=== PATIENT | female | born 1980 | race Caucasian/White ===

== ENCOUNTER 2018-08-09 12:52 | Emergency (ER) | payer OTHER ==
[2018-08-09] MEDS ORDERED: IBUPROFEN 400 MG TABLET (FP) PO ONE ×2 (13:05→13:10)
[2018-08-09 13:10] VITALS: BP 99/62; PULSE 88; BMI 25.4
--- NOTE | 2018-08-09 13:36 | PDOC ---
History of Present Illness - General Chief Complaint: Cold Symptoms Stated Complaint: HEADACHE/CONGESTION Time Seen by Provider: 08/09/18 13:19 History Source: Patient Exam Limitations: No Limitations Past History - Past Medical History Allergies/Adverse Reactions: Allergies Allergy/AdvReac Type Severity Reaction Status Date / Time No Known Allergies Allergy Verified 08/09/18 13:02 Home Medications: Ambulatory Orders NK [No Known Home Medication] 08/09/18 Anemia: No Asthma: No Cardiac Disorders: No COPD: No CHF: No Diabetes: No GI Disorders: Yes (hiatal hernia) Psychiatric Problems: Yes (anxiety) - Immunization History Immunization Up to Date: Yes - Suicide/Smoking/Psychosocial Hx Smoking History: Never smoked Have you smoked in the past 12 months: No Hx Alcohol Use: No Substance Use Type: None *Physical Exam - Vital Signs Last Vital Signs Temp Pulse Resp BP Pulse Ox 102.6 F H 88 18 99/62 100 08/09/18 13:03 08/09/18 13:03 08/09/18 13:03 08/09/18 13:03 08/09/18 13:03 - Physical Exam General Appearance: No: Apparent Distress HEENT: positive: Normal ENT Inspection, TMs Normal, Pharynx Normal Respiratory/Chest: positive: Lungs Clear, Normal Breath Sounds. negative: Respiratory Distress Cardiovascular: positive: Regular Rhythm, Regular Rate, S1, S2. negative: Murmur Integumentary: positive: Normal Color Neurologic: positive: Alert, Normal Mood/Affect Moderate Sedation - Procedure Monitoring Vital Signs: Procedure Monitoring Vital Signs Temperature 102.6 F H 08/09/18 13:03 Pulse Rate 88 08/09/18 13:03 Respiratory Rate 18 08/09/18 13:03 Blood Pressure 99/62 08/09/18 13:03 O2 Sat by Pulse Oximetry (%) 100 08/09/18 13:03 ED Treatment Course - Medications Given in the ED: ED Medications Discontinued Medications Generic Name Dose Route Start Last Admin Trade Name Freq PRN Reason Stop Dose Admin Ibuprofen 800 mg 08/09/18 13:10 08/09/18 13:10 Motrin - PO 08/09/18 13:11 800 mg NOW ONE Administration Medical Decision Making - Medical Decision Making 37 y/o F with no sig pmh presents with fever, cough with yellow phlegm, headache , chest congestion, body aches, nausea x 3 days. Mentions someone coughed on her 3 days ago and her sxs started since then. Denies sob, cp, abd pain, n/v/d, recent travel. Consider influenza Motrin given for fever in triage Flu swab sent 08/09/18 13:36 Flu positive Patient outside 48 hours window Given otherwise patient appears clinically well, is young and healthy with no comorbidities, will not start Tamiflu treatment This was discussed with patient Supportive care encouraged Stable for discharge 08/09/18 14:11 *DC/Admit/Observation/Transfer Diagnosis at time of Disposition: Influenza A - Discharge Dispostion Disposition: HOME Condition at time of disposition: Stable Decision to Admit order: No - Referrals Referrals: Errol Parker MD [Primary Care Provider] - 3 days - Patient Instructions Printed Discharge Instructions: DI for Influenza -- Adult Additional Instructions: Thank you for choosing [facility]. It was a pleasure taking care of you. You were found to have flu Recommend rest, hydration (at least 2 L of water daily), taking Tylenol or Motrin as needed for fever. Wash hands Cover your mouth when coughing as it can spread by coughing Return to the Emergency Department if your symptoms worsen or persist or have other concerning symptoms. - Post Discharge Activity
[2018-08-09 14:05] VITALS: TEMP 101.1
== END 2018-08-09 14:23 | disposition home or self-care (01) ==
LOC: JERFT 12:52
DX: J09.X2 Influenza due to identified novel influenza A virus with other respiratory manifestations (principal)
CPT/HCPCS: 87804; 99281-25

== ENCOUNTER 2021-01-19 15:31 | Emergency (ER) | payer OTHER ==
[2021-01-19 15:50] VITALS: BP 108/69; PULSE 90; TEMP 99.1; BMI 21.6
== END 2021-01-19 16:41 | disposition home or self-care (01) ==
LOC: JER 15:31
DX: R05 Cough (principal); J02.9 Acute pharyngitis, unspecified; Z11.52 Encounter for screening for COVID-19
CPT/HCPCS: 99283-25; C9803; U0003; U0005

== ENCOUNTER 2021-01-21 08:26 | Emergency (ER) | payer OTHER ==
[2021-01-21 09:08] VITALS: BP 114/70; PULSE 74; TEMP 98.1; BMI 21.6
[2021-01-21] MEDS ORDERED: PSEUDOEPHEDRINE HCL 30 MG TABLET PO ONE (09:30)
[2021-01-21] MEDS ORDERED: IBUPROFEN 600 MG TABLET (FP) PO ONE ×2 (09:30→10:17)
[2021-01-22 14:13] LABS: SARS-CoV-2 NAA Not Detected (Not Detected)
== END 2021-01-21 11:49 | disposition home or self-care (01) ==
LOC: JER 08:26
DX: J02.9 Acute pharyngitis, unspecified (principal); Z11.52 Encounter for screening for COVID-19
CPT/HCPCS: 87804; 87807; 87880; 99283-25; C9803; U0003; U0005

== ENCOUNTER 2021-07-01 12:25 | Emergency (ER) | payer OTHER ==
[2021-07-01 12:39] VITALS: BP 110/70; PULSE 72; TEMP 98.3; BMI 21.6
[2021-07-04 01:06] LABS: SARS-CoV-2 NAA Detected (Not Detected)
== END 2021-07-01 13:47 | disposition home or self-care (01) ==
LOC: JER 12:25
DX: J02.9 Acute pharyngitis, unspecified (principal)
CPT/HCPCS: 87070; 87804; 99283-25; C9803; U0003; U0005